=== PATIENT | female | born 1975 | race Two or more races ===

== ENCOUNTER 2017-06-23 06:03 | Inpatient (IN) | payer OTHER ==
[~2017-06-23 06:03] MED LIST: CITRIC ACID/SODIUM CITRATE 30 ML UNIT-DOSE CUP PO ONE; ELECTROLYTE-148 SOLN 500 ML IV ONE
[2017-06-23 06:34] VITALS: BMI 34.2
--- NOTE | 2017-06-23 08:06 | HP ---
Past Medical History - Primary Care Physician PCP:: Radha Keating - Admission Chief Complaint: 41 yrs , previous c/section 39.3 weeks, previous c/s, requests for repeat c/s & tubal ligation History of Present Illness: pnc at, 2, [facility] . wt gain 10 lbs panel O pos, Rpr nr, Rubella immune, Hbsag neg, Hiv neg, Sickle neg , Gc/Ct neg 04/02/17 Quantiferon neg, Rpr nr, 1 Hr Gtt 172 3 Hr Gtt 91, 249, 118, 71 she was considered GDM, she is diet controlled, managed by MFM . 05/31/17 Gbs neg, gc/ct neg , Hiv neg hgb 10.6 She had gentic counselling , Nt screen ,Modified Sequential & Materna T -21 neg . serial sono were done for growth by [facility] last sono on 06/10/17 37.4 weeks , efw 7/15", bpp 11/05 History Source: Patient, Medical Record Limitations to Obtaining History: No Limitations - Past Medical History CHANNEL DEVELOPMENT DIRECTOR: No: Migraine, Seizure Cardiovascular: No: HTN Pulmonary: Yes: Asthma Gastrointestinal: Yes: Hemorrhoids. No: Gastritis Hepatobiliary: No: Hepatitis B Renal/: No: UTI ...: 8 ...Para: 3 ...Term: 3 ...: 0 ...Spon : 0 ...Induced : 4 ...Multiple Gestation: 0 ...LMP: 10/01/16 ...EDC by Sono: 06/27/17 (39.3 weeks ) Additional OB History: g1 : 08/29/1995: 40 wks girl. g2 1995 8 wks Ind ab. g3 11/04/1998 40 wks boy. g4 5 weeks Ind ab. g5 1999 6 wks Ind Ab. [id number] wks In ab. g7 12/22/2013 primary c/section 7'4' [facility] boy Heme/Onc: Yes: Anemia (rx po iron & pnv) Infectious Disease: Yes: STD's (h/o Cjlamydia treated in 1992 h/o hpv) Psych: Yes: Other (no c/o mental health problems) Endocrine: Yes: Other (GDM diet controlled in current pregn ( 2018)) - Past Surgical History Past Surgical History: Yes: (primary c/s 12/22/2013) Hx Myomectomy: No Hx Transabdominal Cerclage: No - Smoking History Smoking history: Never smoked Have you smoked in the past 12 months: No - Alcohol/Substance Use Hx Alcohol Use: No History of Substance Use: reports: None Home Medications - Allergies Allergies/Adverse Reactions: Allergies Allergy/AdvReac Type Severity Reaction Status Date / Time No Known Drug Allergies Allergy Unknown Verified 06/23/17 06:21 - Home Medications Home Medications: Ambulatory Orders Vit/Iron Fum/Folic AC [ Tablet] 1 each PO DAILY #30 tablet Ferrous Sulfate [Feosol] 325 mg PO DAILY 06/23/17 Physical Exam - Maternity Vital Signs: Vital Signs Temperature 97.7 F 06/23/17 06:25 Pulse Rate 81 06/23/17 06:25 Respiratory Rate 18 06/23/17 06:25 Blood Pressure 119/75 06/23/17 06:25 O2 Sat by Pulse Oximetry (%) Constitutional: Yes: Well Nourished Eyes: Yes: WNL HENT: Yes: Normocephalic Neck: Yes: WNL Cardiovascular: Yes: WNL, Regular Rate and Rhythm Lungs: Clear to auscultation Breast(s): Yes: WNL. No: Mass - Abdominal Exam/OB Fundal Height: 40 Number of Fetuses: Single Presentation: Vertex Contractions: No Monitor Mode: External Heart Rate (range): 130 Heart Rate Location: Midline Category: I Accelerations: Uniform Decelerations: None - Vaginal Exam/OB Vaginal Bleediing: No Speculum Exam: No Dilatation (cm): close Effacement (%): unefface Amniotic Membrane Status: Intact Presentation: Vertex/Position Station: -3 - Physical Exam Musculoskeletal: Yes: WNL Extremities: Yes: WNL. No: Calf Tenderness Edema: LLE: Trace, RLE: Trace Integumentary: Yes: Incision (old pfannensteil scar) Deep Tendon Reflex Grade: Normal +2 ...Motor Strength: WNL Psychiatric: Yes: WNL, Alert, Oriented - Labs Lab Results: Selected Entries 12/21/13 12/21/13 12/21/13 20:00 21:00 22:00 Temperature Pulse Rate Blood Pressure 131/75 134/76 123/74 12/21/13 12/22/13 23:00 02:00 Temperature 98.2 F Pulse Rate 82 Blood Pressure 129/76 144/79 Laboratory Tests 12/21/13 12/21/13 12/21/13 16:00 18:00 18:00 WBC RBC Hgb Hct Plt Count Neutrophils % Lymphocytes % Monocytes % Eosinophils % Basophils % PTT (Actin FS) 28.5 PT with INR INR Sodium Potassium Chloride Carbon Dioxide BUN Creatinine Random Glucose Uric Acid 4.2 Calcium AST ALT Alkaline Phosphatase Total Protein Albumin Urine Protein Urine Glucose (UA) Urine Ketones Ur Leukocyte Esterase Urine WBC 14 RPR Titer 06/20/17 06/20/17 06/20/17 09:41 09:41 09:41 WBC 6.4 RBC 4.05 D Hgb 11.4 D Hct 33.6 D Plt Count 224 Neutrophils % 68.4 Lymphocytes % 25.3 D Monocytes % 4.7 Eosinophils % 1.3 Basophils % 0.3 PTT (Actin FS) PT with INR 11.30 INR 1.00 Sodium 138 Potassium 3.9 Chloride 106 Carbon Dioxide 25 BUN 11 Creatinine 0.6 Random Glucose 161 H Uric Acid Calcium 8.5 AST 13 L ALT 14 Alkaline Phosphatase 185 H Total Protein 6.5 Albumin 2.6 L Urine Protein Urine Glucose (UA) Urine Ketones Ur Leukocyte Esterase Urine WBC RPR Titer 06/20/17 06/20/17 09:41 10:04 WBC RBC Hgb Hct Plt Count Neutrophils % Lymphocytes % Monocytes % Eosinophils % Basophils % PTT (Actin FS) PT with INR INR Sodium Potassium Chloride Carbon Dioxide BUN Creatinine Random Glucose Uric Acid Calcium AST ALT Alkaline Phosphatase Total Protein Albumin Urine Protein Negative Urine Glucose (UA) 1+ H Urine Ketones Negative Ur Leukocyte Esterase Negative Urine WBC RPR Titer Nonreactive Hemorrhage Risk Assessment - Risk Factors Risk Score: 1 Risk Level: Medium Risk Problem List - Problems (1) 39 weeks gestation of Code(s): Z3A.39 - 39 WEEKS GESTATION OF (2) Advanced maternal age (AMA) in Code(s): XYG2769 - (3) Previous section Code(s): Z98.891 - HISTORY OF UTERINE SCAR FROM PREVIOUS SURGERY (4) Diet controlled gestational diabetes mellitus (GDM) in third trimester Code(s): O24.410 - GESTATIONAL DIABETES MELLITUS IN , DIET CONTROLLED (5) Multiparity Code(s): Z64.1 - PROBLEMS RELATED TO MULTIPARITY Assessment/Plan 41 yrs )41 , 39 .3 weeks , gbs neg, GDM diet controlled , previous c/s , requests for voluntory sterlization Plan Repeat c/section btl
[2017-06-23] MEDS ORDERED: BUPIVACAINE 0.75% IN DEXTROSE/PF 2ML AMPULE NR ONE (08:14)
[2017-06-23] MEDS ORDERED: PHENYLEPHRINE HCL 10 MG/1 ML SINGLE DOSE VIAL ONE (08:14)
[2017-06-23] MEDS ORDERED: morphine SULFATE/Preservative Free 0.5 MG/ML (1cc Syringe) ONE (08:14)
[2017-06-23] MEDS ORDERED: EPINEPHrine/PF 1 MG/1 ML (1:1,000) AMPULE ONE (08:18)
[2017-06-23] MEDS ORDERED: OXYTOCIN 20 UNITS in 0.9% NS 20 UNIT/1,000 ML INFUS.BAG IV ONE ×2 (08:18→10:50)
[2017-06-23] MEDS ORDERED: EPINEPHrine 1:10,000 (P-F SYR) 1 MG/10 ML DISP.SYRIN ONE (08:18)
[2017-06-23] MEDS: ELECTROLYTE-148 SOLN 1,000 ML IV SCH (08:30)
[2017-06-23] MEDS ORDERED: ONDANSETRON 4 MG/2 ML VIAL IVPUSH PRN (08:36)
[2017-06-23] MEDS ORDERED: ACETAMINOPHEN 325 MG TABLET (FP) PO PRN (08:36)
[2017-06-23] MEDS ORDERED: ePHEDrine SULFATE 50 MG/1 ML AMPULE ONE (08:40)
[2017-06-23] MEDS ORDERED: MIDAZOLAM HCL 2 MG/2 ML SINGLE DOSE VIAL ONE ×2 (08:55→09:10)
[2017-06-23] MEDS ORDERED: KETOROLAC TROMETHAMINE 30 MG/1 ML VIAL ONE (09:02)
[2017-06-23] MEDS ORDERED: IBUPROFEN 800 MG/8 ML IJ IVPB PRN (09:34)
[2017-06-23] MEDS ORDERED: METHYLERGONOVINE MALEATE 0.2 MG/1 ML AMP IM PRN (09:34)
[2017-06-23] MEDS: OXYTOCIN 20 UNITS in 0.9% NS 20 UNIT/1,000 ML INFUS.BAG IV SCH (13:00)
--- NOTE | 2017-06-23 13:41 | PN ---
Delivery - Delivery Section: Repeat, Low Flap Transverse (BTL) Type of Anesthesia: Spinal Episiotomy/Laceration: None EBL (cc): 800 (boyd 100 ml lcifton color ) Delivery, Single - Stages of Labor Date of Delivery: 06/23/17 Time of Delivery: 08:46 Time Placenta Delivered: 08:47 Placenta: Yes: Manual Removal, Uterine Exploration - Condition of Fish Agent/Security Operations Engineer Present: Yes Name: Kanu Kimball Infant Gender: Male Weight: 8 lb 8 oz Position: Left, OT (cord around neck x2) Total Hours ROM (Hrs/Mins): 2 MIN - 1 Minute Total Score: 9 5 Minutes Total Score: 9 - Feeding Plan Initial Plan: Elected not to breastfeed exclusively throughout hospitalization Remarks - Remarks Remarks: 41 yrs , gbs neg , pnc at [address] [place] [address] Indication : 39.3 weeks, previous c/s, multiparity, voluntory sterlization Intra op course uneventful 1 gn Iv ancef in OR given
--- NOTE | 2017-06-23 13:47 | OP ---
Operative Note - Note: Operative Date: 06/23/17 Pre-Operative Diagnosis: 39.3 weeks, previous c/s, multiparity , voluntory sterlization Operation: Repeat LFTC/S & BTL Findings: 8.46 AM ,baby Baby Boy, 9/9, wt 8'8" both tubes ligated , cut by modified Gilbert technique both ovaries normal Dr Kimball present in the OR Surgeon: Radha Keating Correctional Lieutenant: Rehan Stewart Anesthesiologist/INSTRUMENT MAKER APPRENTICE: Kenny Cardoso Anesthesia: Spinal Specimens Removed: cord segment for cord gas. cord blood. placenta. tube left segment. tube right segment Estimated Blood Loss (mls): 800 Drains, Volume Out (mls): 100 (clifton color in boyd bag ) Operative Report Dictated: Yes
[2017-06-23 14:55] LABS: VENOUS PH 7.27 (7.32-7.42)
[2017-06-23 15:03] LABS: ARTERIAL BLOOD GAS pH 7.17 (7.35-7.45)
[2017-06-23] MEDS: CEFAZOLIN 1 GM/D5W 1 GM/50 ML BAG IVPB SCH ×3 (15:54→20:59)
[2017-06-23] MEDS ORDERED: CEFAZOLIN 1 GM/D5W 1 GM/50 ML BAG IVPB SCH (16:00)
--- NOTE | 2017-06-23 19:13 | OP ---
DATE OF OPERATION: 06/23/2017 PREOPERATIVE DIAGNOSIS: A 39.3 weeks, previous section, and requests voluntary sterilization, multiparity. POSTOPERATIVE DIAGNOSIS: A 39.3 weeks, previous section, and requests voluntary sterilization, multiparity. OPERATION DONE: Repeat low-flap transverse section and bilateral tubal ligation. SURGEON: Radha Keating MD VAULT WORKER SURGEON: PHI Graves ANESTHESIOLOGIST: Kenny Cardoso MD ANESTHESIA: Spinal. FINDINGS: This is a 41-year-old, 8, para 3-0-4-3, who is 39.3 weeks, not in labor, and requests for a . PROCEDURE: Abdomen was shaved, prepped. Church catheter was placed, and patient was taken to the operating room table. Spinal anesthesia was given. She was in supine position. Abdomen was painted and draped in usual manner. A Pfannenstiel incision was made from previous scar, skin and subcutaneous tissue, anterior rectus sheath was incised transversely. Bleeding points were clamped and cauterized. Rectus muscle was , and parietal peritoneum was opened vertically. Lower flap of the peritoneum was incised transversely, and bladder was pushed down. Lower uterine segment was incised transversely. Amniotic fluid was clear. Baby was delivered at 8:46 a.m. from LOT position. Cord around the next x2, and Apgars were 9 and 9. Cord was clamped, cut. Cord blood was collected, and cord segment was sent for the cord blood gases. The baby's weight was 8 pounds 8 ounces, and Dr. Kimball, the director client was present in the room. Placenta was removed completely with the membranes, and then, the uterine cavity was cleaned. The uterine incision was closed in 2 layers. First layer was a continuous locking with a Biosyn 0 suture. Second layer was a continuous intermittently locking with a Biosyn 0 suture, and then, hemostasis was checked. Bladder peritoneum was closed with Biosyn 0 suture. Both tubes and ovaries were normal. That was the left tube and the right tube were ligated doubly at the mid-ampullary portion twice, and the portion of the tube segment was cut above the ligature. The endosalpinx was cauterized. This procedure was on the left tube, and then on the right tube was done. Hemostasis was verified. Irrigation was done. Sponge, instrument, needle count was correct, and then, the closure of the abdomen was done. Parietal peritoneum was closed with Vicryl 0 suture. Muscles were approximated together with interrupted Vicryl 0 suture. Hemostasis was checked, and below rectus sheath flap, and then, the anterior rectus sheath was closed with 0 Vicryl suture. Hemostasis was verified in subcutaneous tissue and cauterized any bleeding points. Subcutaneous tissue was approximated with interrupted sutures with a Vicryl 0 suture, and skin was approximated with odalys. The patient tolerated the procedure well. Estimated blood loss was 800 mL. Intraoperative uterine output was 100 mL. It was clifton color. She received IV Ancef 1 g prior to the incision, and she was transferred to the recovery room in stable condition. Blood clots were removed from the vagina before transferring to the recovery room. Kalie [id number] MTDD
[2017-06-23] MEDS: IBUPROFEN 600 MG TABLET (FP) PO PRN (20:58)
[2017-06-23] MEDS: ACETAMINOPHEN 325 MG TABLET (FP) PO PRN (20:58)
[2017-06-24] MEDS: IBUPROFEN 600 MG TABLET (FP) PO PRN ×4 (01:42→21:19)
[2017-06-24] MEDS: ACETAMINOPHEN 325 MG TABLET (FP) PO PRN ×4 (01:42→21:19)
[2017-06-24] MEDS: CEFAZOLIN 1 GM/D5W 1 GM/50 ML BAG IVPB SCH (06:23)
[2017-06-24] MEDS: SIMETHICONE 80 MG TAB.CHEW (FP) PO PRN ×2 (07:59→12:52)
[2017-06-24] MEDS ORDERED: oxyCODONE HCL 5 MG TABLET PO PRN ×2 (08:00)
--- NOTE | 2017-06-24 08:18 | PN ---
Progress Note (short form) - Note Progress Note: Anesthesia POD#1 S/P under Spinal and Duramorh VSS,no N/V,AMbulating well.Pain is bearable. Itch is fading away' A/P Doing well Hanh Maria MD.
[2017-06-24 08:42] LABS: BASO % 0.4 % (0-2.0); EOS % 0.3 % (0-4.5); HEMATOCRIT 23.6 % (32.4-45.2); LYMPH % 17.3 % (8-40); MCH 28.3 pg (25.7-33.7); MEAN CELL VOLUME 83.3 fl (80-96); MEAN PLT VOLUME 7.9 fl (7.5-11.1); MONO % 5.4 % (3.8-10.2); NEUT % 76.6 % (42.8-82.8); PLATELET COUNT 196 K/MM3 (134-434); RBC 2.83 M/mm3 (3.60-5.2); RDW 17.7 % (11.6-15.6)
--- NOTE | 2017-06-24 09:29 | PN ---
Post Progress Note - Subjective Subjective: 41 yo Para 4 status post repeat , seen and evaluated. Doing well Post Day: 1 Type of Delivery: Repeat C/S Vital Signs: Vital Signs Temperature 98.2 F 06/24/17 06:00 Pulse Rate 91 H 06/24/17 06:00 Respiratory Rate 20 06/24/17 07:00 Blood Pressure 110/63 06/24/17 06:00 O2 Sat by Pulse Oximetry (%) 100 06/23/17 10:30 Breast Exam: Yes: Soft Uterus: Yes: Fundus Firm Incision: Yes: Dressing dry and intact Abdomen/GI: Yes: Abdomen soft, Tolerating PO Lochia: Yes: Rubra Lochia, amount: Small Extremities: Yes: Calves non-tender Perineum: Yes: Intact Activity: Ambulating - Labs Labs: CBC WBC 10.0 K/mm3 (4.0-10.0) D 06/24/17 07:45 RBC 2.83 M/mm3 (3.60-5.2) L D 06/24/17 07:45 Hgb 8.0 GM/dL (10.7-15.3) L D 06/24/17 07:45 Hct 23.6 % (32.4-45.2) L D 06/24/17 07:45 MCV 83.3 fl (80-96) 06/24/17 07:45 MCH 28.3 pg (25.7-33.7) 06/24/17 07:45 MCHC 34.0 g/dl (32.0-36.0) 06/24/17 07:45 RDW 17.7 % (11.6-15.6) H 06/24/17 07:45 Plt Count 196 K/MM3 (134-434) 06/24/17 07:45 MPV 7.9 fl (7.5-11.1) 06/24/17 07:45 Neutrophils % 76.6 % (42.8-82.8) 06/24/17 07:45 Lymphocytes % 17.3 % (8-40) D 06/24/17 07:45 Monocytes % 5.4 % (3.8-10.2) 06/24/17 07:45 Eosinophils % 0.3 % (0-4.5) 06/24/17 07:45 Basophils % 0.4 % (0-2.0) 06/24/17 07:45 Assessment/Plan Status post repeat Stable Ambulation Analgesia as needed Continue routine care
[2017-06-24] MEDS ORDERED: BISACODYL 10 MG SUPP.RECT RC PRN (09:34)
[2017-06-24] MEDS: ENOXAPARIN NA (PORCINE) 40 MG/0.4 ML DISP.SYRIN SQ SCH (09:39)
[2017-06-24] MEDS: PRENATAL VITAMINS W/ FOLIC ACID TABLET (FP) PO SCH (14:33)
[2017-06-24] MEDS: FERROUS SO4 325 MG TABLET (FP) PO SCH (21:19)
[2017-06-24] MEDS: ELECTROLYTE-148 SOLN 1,000 ML IV SCH (23:17)
[2017-06-24] MEDS: OXYTOCIN 20 UNITS in 0.9% NS 20 UNIT/1,000 ML INFUS.BAG IV SCH (23:18)
[2017-06-25] MEDS: ACETAMINOPHEN 325 MG TABLET (FP) PO PRN ×3 (05:56→21:47)
[2017-06-25] MEDS: IBUPROFEN 600 MG TABLET (FP) PO PRN ×3 (05:57→21:47)
--- NOTE | 2017-06-25 08:45 | PN ---
Post Progress Note - Subjective Subjective: c/o incision pain scale 5/10 voiding without difficuty no c/o dizziness Post Day: 2 Type of Delivery: Repeat C/S Vital Signs: Vital Signs Temperature 98.3 F 06/25/17 08:28 Pulse Rate 80 06/25/17 08:28 Respiratory Rate 18 06/25/17 08:28 Blood Pressure 124/73 06/25/17 08:28 O2 Sat by Pulse Oximetry (%) 100 06/23/17 10:30 Breast Exam: Yes: Soft. No: Engorged Uterus: Yes: Fundus Firm, Fundus below umbilicus, Non-tender Incision: Yes: [place] intact. No: Redness, Oozing Abdomen/GI: Yes: Abdomen soft, Tender, Passing flatus (bm done ), Tolerating PO (diet ). No: Abdominal Distention Lochia: Yes: Rubra Lochia, amount: Moderate Extremities: Yes: Calves non-tender Perineum: Yes: Intact Activity: Ambulating - Labs Labs: CBC WBC 10.0 K/mm3 (4.0-10.0) D 06/24/17 07:45 RBC 2.83 M/mm3 (3.60-5.2) L D 06/24/17 07:45 Hgb 8.0 GM/dL (10.7-15.3) L D 06/24/17 07:45 Hct 23.6 % (32.4-45.2) L D 06/24/17 07:45 MCV 83.3 fl (80-96) 06/24/17 07:45 MCH 28.3 pg (25.7-33.7) 06/24/17 07:45 MCHC 34.0 g/dl (32.0-36.0) 06/24/17 07:45 RDW 17.7 % (11.6-15.6) H 06/24/17 07:45 Plt Count 196 K/MM3 (134-434) 06/24/17 07:45 MPV 7.9 fl (7.5-11.1) 06/24/17 07:45 Neutrophils % 76.6 % (42.8-82.8) 06/24/17 07:45 Lymphocytes % 17.3 % (8-40) D 06/24/17 07:45 Monocytes % 5.4 % (3.8-10.2) 06/24/17 07:45 Eosinophils % 0.3 % (0-4.5) 06/24/17 07:45 Basophils % 0.4 % (0-2.0) 06/24/17 07:45 Problem List - Problems (1) 39 weeks gestation of Code(s): Z3A.39 - 39 WEEKS GESTATION OF (2) Advanced maternal age (AMA) in Code(s): WWP0028 - (3) Previous section Code(s): Z98.891 - HISTORY OF UTERINE SCAR FROM PREVIOUS SURGERY (4) Diet controlled gestational diabetes mellitus (GDM) in third trimester Code(s): O24.410 - GESTATIONAL DIABETES MELLITUS IN , DIET CONTROLLED (5) Multiparity Code(s): Z64.1 - PROBLEMS RELATED TO MULTIPARITY Assessment/Plan anemia stable, hemodynamically, ciunselling done bgm well controlled encourage ambulation & deep breatrhing , po fluids
[2017-06-25] MEDS: FERROUS SO4 325 MG TABLET (FP) PO SCH ×2 (09:53→21:47)
[2017-06-25] MEDS: PRENATAL VITAMINS W/ FOLIC ACID TABLET (FP) PO SCH (09:53)
[2017-06-25] MEDS: ENOXAPARIN NA (PORCINE) 40 MG/0.4 ML DISP.SYRIN SQ SCH (09:54)
[2017-06-25] MEDS: SIMETHICONE 80 MG TAB.CHEW (FP) PO PRN (21:46)
[2017-06-25] MEDS: SENNOSIDES/DOCUSATE COMBO (SENNA PLUS) TABLET (UD) PO PRN (21:47)
--- NOTE | 2017-06-26 05:46 | DS ---
Physical Exam-MANAGER PHP Vital Signs: Vital Signs Temperature 98.6 F 06/25/17 21:51 Pulse Rate 86 06/25/17 21:51 Respiratory Rate 20 06/25/17 21:51 Blood Pressure 126/68 06/25/17 21:51 O2 Sat by Pulse Oximetry (%) 100 06/23/17 10:30 Constitutional: Yes: Well Nourished Eyes: Yes: Conjunctiva Clear HENT: Yes: Atraumatic Neck: Yes: Supple Cardiovascular: Yes: Regular Rate and Rhythm Respiratory: Yes: Regular Gastrointestinal: Yes: Normal Bowel Sounds Vaginal Exam: Yes: Normal Cervix: Yes: Normal Uterus: Yes: Firm Wound/Incision: Yes: Clean/Dry, Well Approximated, [place] Intact Neurological: Yes: Alert, Oriented ...Motor Strength: WNL Psychiatric: Yes: Alert, Oriented Labs: CBC, BMP 06/24/17 07:45 Delivery - Delivery Section: Repeat, Low Flap Transverse (BTL) Type of Anesthesia: Spinal Episiotomy/Laceration: None EBL (cc): 800 (boyd 100 ml clifton color ) Delivery, Single - Stages of Labor Date of Delivery: 06/23/17 Time of Delivery: 08:46 Time Placenta Delivered: 08:47 Placenta: Yes: Manual Removal, Uterine Exploration - Condition of Infant Supervisor Force Adjustment/Electron Tube Assembler Present: Yes Name: Kanu Kimball Gender: Male Weight: 8 lb 8 oz Position: Left, OT (cord around neck x2) Total Hours ROM (Hrs/Mins): 2 MIN - 1 Minute Total Score: 9 5 Minutes Total Score: 9 - Feeding Plan Initial Plan: Elected not to breastfeed exclusively throughout hospitalization Discharge Summary Reason For Visit: C/S ADMIT Current Active Problems 39 weeks gestation of (Acute) Delivery by (planned) section occurring after 37 completed weeks of gestation but before 39 completed weeks gestation due to (spontaneous) onset of labor, with mention of complication (Acute) Diet controlled gestational diabetes mellitus (GDM) in third trimester (Acute) Multiparity (Acute) Previous section (Acute) Procedures: Principal: Repeat Low Transverse Hospital Course: Routine post op care Condition: Stable - Instructions Diet, Activity, Other Instructions: Post Instructions DIET: Continue good diet high in protein, calcium, and iron rich foods. Drink at least eight (8) glasses of water daily in addition to other fluids. ___ ___ LoCarb Lo luke diet ___ Diabetic Diet MEDICATIONS: Continue vitamins and iron as previously directed. Motrin and Tylenol may be taken for minor discomfort. ACTIVITY: Mild to moderate exercise may be started in two (2) weeks. Take frequent rest periods. Resume normal activity after six (6) week check up. WOUND CARE OF OPERATIVE SITE: Continue use of perineal bottle until vaginal discharge stops. Keep area clean. Shower daily. Keep abdominal wound dry. Report any drainage or redness to physician. Tub baths, tampons and douches are not permitted for [address] Breast feeding & or Bottle feeding BREAST CARE: (For those that are not breast feeding): If engorgement occurs: Wear tight fitting bra. Take Tylenol or Motrin for pain. Apply cold packs (ice in bags to each breast ) FAMILY PLANNING: There are many control alternatives to pursue and they should be discussed at your first office visit. You may resume sexual activity after your six (6) week check up. (Remember, breast feeding is not a contraceptive) NEXT PHYSICIAN APPOINTMENT: Be certain to call for a one (1) week appointment, unless otherwise directed. Friday for odalys removal Call Clinic or got to Emergency Dept if you have any of the following: Heavy vaginal bleeding Painful urination Leg pain Unusual odor noted to vaginal bleeding High fever Red streaking noted on breast Referrals: Radha Keating MD [Staff Physician] - Disposition: HOME - Home Medications Comprehensive Discharge Medication List: Ambulatory Orders Vit/Iron Fum/Folic AC [ Tablet] 1 each PO DAILY #30 tablet Ferrous Sulfate [Feosol] 325 mg PO DAILY 06/23/17 Acetaminophen [Tylenol .Regular Strength -] 500 mg PO Q4H PRN #30 tablet Ferrous Sulfate [Feosol] 325 mg PO BID tab 06/25/17 Ibuprofen [Motrin -] 600 mg PO Q4H PRN #30 tablet 06/25/17 Vitamins (Sjr) - 1 tab PO DAILY tablet 06/25/17 Sennosides/Docusate Sodium [Pericolace -] 2 tablet PO HS PRN #30 tablet
[2017-06-26] MEDS: ACETAMINOPHEN 325 MG TABLET (FP) PO PRN ×2 (06:39→16:18)
[2017-06-26] MEDS: SIMETHICONE 80 MG TAB.CHEW (FP) PO PRN ×2 (06:39→16:18)
[2017-06-26] MEDS: IBUPROFEN 600 MG TABLET (FP) PO PRN ×2 (06:39→16:19)
[2017-06-26 09:01] LABS: BASO % 0.4 % (0-2.0); EOS % 1.3 % (0-4.5); HEMATOCRIT 20.9 % (32.4-45.2); HEMOGLOBIN 7.1 GM/dL (10.7-15.3); LYMPH % 17.5 % (8-40); MCH 28.7 pg (25.7-33.7); MEAN CELL VOLUME 84.4 fl (80-96); MEAN PLT VOLUME 7.3 fl (7.5-11.1); MONO % 4.5 % (3.8-10.2); NEUT % 76.3 % (42.8-82.8); PLATELET COUNT 250 K/MM3 (134-434); RBC 2.47 M/mm3 (3.60-5.2); RDW 17.7 % (11.6-15.6); WHITE BLOOD COUNT 8.8 K/mm3 (4.0-10.0)
[2017-06-26] MEDS: FERROUS SO4 325 MG TABLET (FP) PO SCH ×2 (09:54→22:50)
[2017-06-26] MEDS: PRENATAL VITAMINS W/ FOLIC ACID TABLET (FP) PO SCH (09:54)
[2017-06-26] MEDS: ENOXAPARIN NA (PORCINE) 40 MG/0.4 ML DISP.SYRIN SQ SCH (09:55)
--- NOTE | 2017-06-26 12:57 | PN ---
Progress Note (short form) - Note Progress Note: nurse notified me that today's Hgb is 7gm . I interrogated the patient & examined her . she does not c/o dizziness or fatigue she is not bleeding heavy . she has incision pain scale 5/10 . she is prepared to stay until tomorrow . I discussed with her r/b/a of blood transfusion , she declined , she poncho continue vit & iron at home . also she is extnsively counselled for anemia & symptoms, & diet Selected Entries 06/26/17 09:00 Temperature 98.6 F Pulse Rate 78 Blood Pressure 124/68 Laboratory Tests 06/26/17 07:45 WBC 8.8 RBC 2.47 L Hgb 7.1 L D Hct 20.9 L Plt Count 250 D o/e abd is soft , not distended ut below umbilicus firm , not tender no cva tendrness incision healing, exposed to air, odalys in situ , no oozing ,or erythema around . bgm are normal ass : anemia secondary to blood loss also , hemodynamically stable , s/p Post Repeat C/section BTL day #3 plan do not discharge today will repeat cbc in AM consider discharge tomorrow Problem List - Problems (1) 39 weeks gestation of Code(s): Z3A.39 - 39 WEEKS GESTATION OF (2) Advanced maternal age (AMA) in Code(s): [id number] - (3) Previous section Code(s): Z98.891 - HISTORY OF UTERINE SCAR FROM PREVIOUS SURGERY (4) Diet controlled gestational diabetes mellitus (GDM) in third trimester Code(s): O24.410 - GESTATIONAL DIABETES MELLITUS IN , DIET CONTROLLED (5) Multiparity Code(s): Z64.1 - PROBLEMS RELATED TO MULTIPARITY
[2017-06-27] MEDS: SENNOSIDES/DOCUSATE COMBO (SENNA PLUS) TABLET (UD) PO PRN (00:15)
[2017-06-27] MEDS: SIMETHICONE 80 MG TAB.CHEW (FP) PO PRN ×2 (00:15→09:29)
[2017-06-27] MEDS: IBUPROFEN 600 MG TABLET (FP) PO PRN ×2 (00:16→09:30)
[2017-06-27] MEDS: ACETAMINOPHEN 325 MG TABLET (FP) PO PRN ×2 (00:16→09:29)
--- NOTE | 2017-06-27 07:10 | PN ---
Progress Note (short form) - Note Progress Note: pod 4 , no dizziness , no excess vaginal bleeding Last Vital Signs Temp Pulse Resp BP Pulse Ox 98.4 F 77 20 139/77 100 06/26/17 20:50 06/26/17 20:50 06/26/17 20:50 06/26/17 20:50 06/23/17 10:30 abdomen soft, no distension , no cva uterus firm, non tender incision dry, clean no calf tenderness lochia mild anemia. asymptomatic cbc pending plan if H&H stable will d/c home on po iron ,vit
[2017-06-27 08:37] LABS: BASO % 0.7 % (0-2.0); EOS % 1.8 % (0-4.5); LYMPH % 26.6 % (8-40); MCH 28.1 pg (25.7-33.7); MCHC 33.3 g/dl (32.0-36.0); MEAN CELL VOLUME 84.4 fl (80-96); MEAN PLT VOLUME 7.4 fl (7.5-11.1); MONO % 5.6 % (3.8-10.2); NEUT % 65.3 % (42.8-82.8); PLATELET COUNT 266 K/MM3 (134-434); RDW 17.5 % (11.6-15.6); WHITE BLOOD COUNT 6.8 K/mm3 (4.0-10.0)
[2017-06-27 08:43] LABS: HEMATOCRIT 20.2 % (32.4-45.2); HEMOGLOBIN 6.7 GM/dL (10.7-15.3)
[2017-06-27] MEDS: ENOXAPARIN NA (PORCINE) 40 MG/0.4 ML DISP.SYRIN SQ SCH (09:29)
[2017-06-27] MEDS: PRENATAL VITAMINS W/ FOLIC ACID TABLET (FP) PO SCH (09:29)
[2017-06-27] MEDS: FERROUS SO4 325 MG TABLET (FP) PO SCH (09:29)
[2017-06-27 10:59] VITALS: BP 126/71; PULSE 90; TEMP 98.3
--- NOTE | 2017-06-27 11:16 | PATH ---
Surgical Pathology Report Patient Name: DONNIE GIRALDO [facility]. Rec. #: [id number] /Age/Gender: 1975 (Age: 41) / F Account: [id number] Location: [facility] OBS/BOTTOM BUFFER Taken: 06/23/2017 Received: 06/24/2017 Reported: 06/27/2017 Physicians: Radha Keating M.D. Specimen(s) Received A: PLACENTA B: RIGHT FALLOPIAN TUBE C: LEFT FALLOPIAN TUBE Clinical History , . C. Section 12/12. IAB x4 History chlamydia; LEEP-2008 Final Diagnosis A. PLACENTA, DELIVERY: FOCALLY DISRUPTED THIRD TRIMESTER PLACENTA WITH THREE VESSEL UMBILICAL CORD AND UNREMARKABLE PLACENTAL MEMBRANES. B. RIGHT FALLOPIAN TUBE, PARTIAL EXCISION: FULL LUMINAL PORTION OF UNREMARKABLE FALLOPIAN TUBE. C. LEFT FALLOPIAN TUBE, PARTIAL EXCISION: FULL LUMINAL PORTION OF UNREMARKABLE FALLOPIAN TUBE. Electronically Signed Jose Salmeron M.D. Gross Description A. The specimen is received fresh labeled placenta and is a 550 gram, 16 x 14 x 3 cm. placenta with attached membranes and umbilical cord. The attached membranes are glistening and translucent and insert marginally. The umbilical cord measures 26 cm. in length and averages 1.2 cm. in diameter. The cord inserts eccentrically, 5 cm. to the nearest margin. No true knots or strictures are identified. Cut surface of the umbilical cord reveals 3 vessels. The surface is thompson-blue with minimal fibrin deposition and appropriate caliber vessels. The maternal surface is red-brown with focal defects. Sectioning reveals red-brown, spongy parenchyma. No lesions are identified. Deep Fryer Assembler sections are submitted in three cassettes as follows: 1- membrane rolls and umbilical cord; 2-3- full thickness sections of placenta. B. Received fresh labelled "portion of right fallopian tube" is a 2.2 cm long by 0.6 cm in diameter portion of tissue consistent with a portion of fallopian tube. The fimbriated end is not identified. No focal lesions are identified. Sectioned and totally submitted in one cassette. C. Received fresh labelled "portion of left fallopian tube" is a 1.5 cm long by 0.6 cm in diameter portion of tissue consistent with a portion of fallopian tube. The fimbriated end is not identified. No focal lesions are identified. Sectioned and totally submitted in one cassette. [facility]/06/25/2017 [facility]/06/25/2017
--- NOTE | 2017-06-27 11:49 | PN ---
Progress Note (short form) - Note Progress Note: po day #4 s/p repeat c/section pt has no c/o pain except incision pain 4-5 no c/o dizziness , no headache voiding without difficulty, bm done Selected Entries 06/27/17 10:00 Temperature 98.3 F Pulse Rate 90 Blood Pressure 126/71 Laboratory Tests 06/27/17 06:40 WBC 6.8 RBC 2.40 L Hgb 6.7 L* Hct 20.2 L Plt Count 266 p/a soft , not distended , BS active pfannesteil incision wound healing, odalys intact , no erythema, no induration , no oozing ut firm below umbilicus non tender no cva tenderness lochia rubra , minimal no evidence of continued heavcy bleeding Ass : pt stable, hemodynamically stable s/prepeat c/s btl day #4 once again discussed blood transfusion r/b/a , she refused transfusion , she counselled for po high iron protein diet , po iron & pnv she will return to clinic for odalys removal Problem List - Problems (1) 39 weeks gestation of Code(s): Z3A.39 - 39 WEEKS GESTATION OF (2) Advanced maternal age (AMA) in Code(s): EAE5700 - (3) Previous section Code(s): Z98.891 - HISTORY OF UTERINE SCAR FROM PREVIOUS SURGERY (4) Diet controlled gestational diabetes mellitus (GDM) in third trimester Code(s): O24.410 - GESTATIONAL DIABETES MELLITUS IN , DIET CONTROLLED (5) Multiparity Code(s): Z64.1 - PROBLEMS RELATED TO MULTIPARITY
== END 2017-06-27 13:10 | disposition home or self-care (01) | DRG 540 ==
LOC: JLDR 06:03 → J3W 11:26
PROVIDERS: ADMIT Obstetrics & Gynecology; ATTEND Obstetrics & Gynecology
PROC: 10D00Z1 Extraction of Products of Conception, Low, Open Approach (ICD-10-PCS; principal; 2017-06-23)
PROC: 0U570ZZ Destruction of Bilateral Fallopian Tubes, Open Approach (ICD-10-PCS; 2017-06-23)
DX: O24.420 Gestational diabetes mellitus in childbirth, diet controlled (principal); O34.219 Maternal care for unspecified type scar from previous cesarean delivery; O69.81X0 Labor and delivery complicated by cord around neck, without compression, not applicable or unspecified; Z3A.39 39 weeks gestation of pregnancy; Z37.0 Single live birth; Z30.2 Encounter for sterilization
CPT/HCPCS: 36415; 36600; 82803; 82962; 85025; 88302-TC; 88307-TC

== ENCOUNTER 2021-01-11 05:03 | Day surgery (SDC) | payer OTHER ==
[2021-01-10 09:49] VITALS: BMI 28.1
[2021-01-11 10:03] VITALS: TEMP 97.5
[2021-01-11 11:50] VITALS: BP 129/78; PULSE 57
== END 2021-01-11 11:35 | disposition home or self-care (01) ==
LOC: JASU-ENDO 05:03
PROVIDERS: ATTEND Internal Medicine Gastroenterology
PROC: 0DJD8ZZ Inspection of Lower Intestinal Tract, Via Natural or Artificial Opening Endoscopic (ICD-10-PCS; principal; 2021-01-11 09:30)
DX: Z12.11 Encounter for screening for malignant neoplasm of colon (principal)
CPT/HCPCS: 81025

== ENCOUNTER 2022-10-20 17:32 | Emergency (ER) | payer OTHER ==
[2022-10-20 17:37] VITALS: BP 168/109; PULSE 67; RESP 18; TEMP 98.4; BMI 29.6
[2022-10-20 19:11] LABS: EPI CELLS >36 /uL (0-25.1); HCG,QUALITATIVE URINE Negative; HYALINE CASTS 0 /uL (0-3.1); URINE APPEARANCE CLEAR; URINE BACTERIA 1365 /uL (0-1359); URINE BILIRUBIN NEGATIVE (NEGATIVE); URINE COLOR ORANGE; URINE GLUCOSE (UA) NEGATIVE (NEGATIVE); URINE KETONE NEGATIVE (NEGATIVE); URINE LEUK ESTERASE 1+ (NEGATIVE); URINE NITRITE NEGATIVE (NEGATIVE); URINE PROTEIN TRACE (NEGATIVE); URINE RBC 50 /uL (0-23.9); URINE UROBILINOGEN 0.2 mg/dL (0.2-1.0); URINE WBC 32 /uL (0-25.8)
== END 2022-10-20 21:24 | disposition home or self-care (01) ==
LOC: JER 17:32
DX: R10.30 Lower abdominal pain, unspecified (principal)
CPT/HCPCS: 81003; 84703; 99283-25

== ENCOUNTER 2024-05-19 17:05 | Emergency (ER) | payer OTHER ==
[2024-05-19 17:14] VITALS: BP 141/85; PULSE 92; RESP 18; TEMP 99.7; BMI 23.2
[2024-05-19] MEDS ORDERED: ACETAMINOPHEN 500 MG TABLET (FP) ONE (19:38)
[2024-05-19] MEDS ORDERED: guaiFENesin/D-METHORPHAN HB 10 ML UNIT-DOSE CUPS ONE (19:38)
[2024-05-19] MEDS ORDERED: IBUPROFEN 400 MG TABLET (FP) PO ONE (19:38)
[2024-05-19] MEDS: ACETAMINOPHEN 500 MG TABLET (FP) PO ONE (19:40)
[2024-05-19] MEDS: guaiFENesin/D-METHORPHAN HB 10 ML UNIT-DOSE CUPS PO ONE (19:40)
[2024-05-19] MEDS: IBUPROFEN 400 MG TABLET (FP) PO ONE (19:40)
== END 2024-05-19 20:44 | disposition home or self-care (01) ==
LOC: JERFT 17:05
DX: R09.82 Postnasal drip (principal); J06.9 Acute upper respiratory infection, unspecified; R07.9 Chest pain, unspecified; R05.9 Cough, unspecified; Z20.822 Contact with and (suspected) exposure to COVID-19
CPT/HCPCS: 0241U-QW; 71046-TC-FY; 99284-25